=== PATIENT | male | born 1980 | race Caucasian/White ===

== ENCOUNTER 2017-08-05 14:32 | Inpatient (IN) | payer OTHER ==
[~2017-08-05] VITALS: Ht 188 cm; Wt 109.0 kg
[2017-08-05 16:07] LABS: Basophils # (auto) 0 uL; Basophils % (auto) 0.3 % (0.0-2.0); CONDITION Y; Eosinophils # (auto) 0.1 uL; Eosinophils % (auto) 0.8 % (0.0-7.0); Hematocrit 50.9 % (41.0-53.0); Hemoglobin 17.4 g/dL (13.5-17.5); Lymphocytes # (auto) 1.6 uL; Mean Corpuscular Hemoglobin 31.2 pg (28.0-32.0); Mean Corpuscular Hgb Conc. 34.1 g/dL (32.0-36.0); Mean Corpuscular Volume 91.4 fL (80.0-100.0); Mean Platelet Volume 9.9 fL (6.9-10.8); Monocytes # (auto) 0.9 uL; Monocytes % (auto) 6.4 % (0.0-12.0); Neutrophils % (auto) 81.5 % (37.0-80.0); Platelet Count (auto) 293 10^3/uL (140-450); Red Cell Distribution Width 14.4 % (11.8-14.3); White Blood Cell 14.7 10^3/uL (4.4-10.8)
[2017-08-05 16:12] LABS: Albumin 4.5 g/dL (3.4-5.0); BUN/Creatinine Ratio 16.7; Bilirubin, Total 1.1 mg/dL (0.2-1.0); Calcium 8.9 mg/dL (8.5-10.1); Potassium 3.5 mmol/L (3.5-5.1); Total Protein 7.9 g/dL (6.4-8.2)
[2017-08-05] MEDS ORDERED: SODIUM CHLORIDE 0.9% 1,000 ML IVB ONE ×2 (16:32→16:41)
[2017-08-05] MEDS ORDERED: ONDANSETRON HCL 4 MG/2 ML VIAL IV ONE (16:45)
[2017-08-05] MEDS ORDERED: MORPHINE SULF INJ 2 MG/ML SYRINGE 1ML IV PRN ×2 (16:45→20:30)
[2017-08-05 16:54] LABS: Magnesium 2.4 mg/dL (1.6-2.6)
[2017-08-05 17:03] LABS: INR 1.05 (0.9-1.15); Partial Thromboplastin Time 27.5 sec (22.64-33.71); Prothrombin Time 11.4 sec (9.37-12.3)
[2017-08-05] MEDS ORDERED: LIDOCAINE 1% HCL (LOCAL ANESTH.) INJ 20ML MDV ONE ×2 (17:18→18:24)
[2017-08-05] MEDS ORDERED: SUCCINYLCHOLINE CHLORIDE 20 MG/ML 10ML VIAL IV ONE (17:19)
[2017-08-05] MEDS ORDERED: MEPERIDINE HCL (50 MG/ML) 1 ML VIAL ONE (17:40)
[2017-08-05] MEDS ORDERED: MIDAZOLAM HCL 1MG/1ML-2 ML VIAL ONE (17:40)
[2017-08-05] MEDS ORDERED: KETOROLAC TROMETH 60MG/2ML VIAL IM ONE ×2 (17:40→19:43)
[2017-08-05] MEDS ORDERED: NEOSTIGMINE 1 MG/ML INJ (10mg/10ML VIAL) ONE ×2 (17:40→19:43)
[2017-08-05] MEDS ORDERED: fentaNYL CITRATE 100 MCG/2 ML VL ONE (17:40)
[2017-08-05] MEDS ORDERED: GLYCOPYRROLATE 0.2 MG/ML 1ML VIAL ONE ×2 (17:40→19:43)
[2017-08-05] MEDS ORDERED: ROCURONIUM 10MG/ML 10ML VIAL IV ONE (17:40)
[2017-08-05] MEDS ORDERED: ONDANSETRON HCL 4 MG/2 ML VIAL ONE (17:40)
[2017-08-05] MEDS ORDERED: PROPOFOL 10 MG/ML 20 ML IV ONE (17:40)
[2017-08-05] MEDS ORDERED: SODIUM CHLORIDE LOCK 20 ML ONE (17:40)
[2017-08-05] MEDS ORDERED: cefTRIAXone 1GM/50ML D5W 50 ML IV ONE (17:45)
[2017-08-05] MEDS ORDERED: POVIDONE IODINE 10 % TOPICAL OINT 30GM TOP ONE (19:55)
[2017-08-05] MEDS ORDERED: KETOROLAC TROMETH 30 MG/ML 1ML VIAL IV ONE (20:30)
[2017-08-05] MEDS ORDERED: NITROGLYCERIN 0.4 MG SL TAB SL PRN (20:30)
[2017-08-05] MEDS ORDERED: HYDROmorphone HCL 2 MG/ML VL IV PRN (20:30)
[2017-08-05] MEDS ORDERED: METOCLOPRAMIDE HCL 5MG/ml INJ 2ml VIAL IV ONE (20:30)
[2017-08-05 21:40] VITALS: BP 131/82
[2017-08-05] MEDS: metroNIDAZOLE 500MG/100ML 100 ML IV SCH (22:36)
[2017-08-05] MEDS: D5W/SOD CHL 0.45%/KCL 20MEQ 1,000 ML IV SCH (23:10)
[2017-08-06] VITALS (7 sets, daily range): BP systolic 109–137; BP diastolic 65–77
[2017-08-06] MEDS: HYDROmorphone HCL 2 MG/ML VL IV PRN ×6 (00:31→21:05)
[2017-08-06] MEDS: metroNIDAZOLE 500MG/100ML 100 ML IV SCH ×3 (05:34→21:27)
[2017-08-06] MEDS: D5W/SOD CHL 0.45%/KCL 20MEQ 1,000 ML IV SCH ×3 (08:00→22:25)
[2017-08-06] MEDS: ONDANSETRON HCL 4 MG/2 ML VIAL IV PRN ×2 (09:40→17:11)
[2017-08-06] MEDS: KETOROLAC TROMETH 30 MG/ML 1ML VIAL IV PRN (12:22)
[2017-08-06] MEDS: cefTRIAXone 1GM/50ML D5W 50 ML IV SCH (22:25)
[2017-08-07] MEDS: HYDROmorphone HCL 2 MG/ML VL IV PRN (02:23)
[2017-08-07 05:00] VITALS: BP 106/62
[2017-08-07] MEDS: D5W/SOD CHL 0.45%/KCL 20MEQ 1,000 ML IV SCH ×3 (05:39→22:01)
[2017-08-07 05:48] LABS: Basophils # (auto) 0 uL; Basophils % (auto) 0.2 % (0.0-2.0); Eosinophils # (auto) 0.1 uL; Eosinophils % (auto) 0.7 % (0.0-7.0); Hemoglobin 14.8 g/dL (13.5-17.5); Lymphocytes # (auto) 2.4 uL; Lymphocytes % (auto) 21.8 % (10.0-50.0); Mean Corpuscular Hemoglobin 31.2 pg (28.0-32.0); Mean Corpuscular Hgb Conc. 33.6 g/dL (32.0-36.0); Mean Corpuscular Volume 92.9 fL (80.0-100.0); Mean Platelet Volume 9.7 fL (6.9-10.8); Monocytes # (auto) 0.9 uL; Monocytes % (auto) 7.9 % (0.0-12.0); Neutrophils # (auto) 7.6 uL; Neutrophils % (auto) 69.4 % (37.0-80.0); Platelet Count (auto) 226 10^3/uL (140-450); Red Cell Distribution Width 14.1 % (11.8-14.3)
[2017-08-07] MEDS: metroNIDAZOLE 500MG/100ML 100 ML IV SCH ×3 (06:08→22:01)
[2017-08-07 06:16] LABS: Potassium 3.5 mmol/L (3.5-5.1)
[2017-08-07 06:23] LABS: BUN/Creatinine Ratio 18.4; Calcium 7.9 mg/dL (8.5-10.1)
[2017-08-07 09:00] VITALS: BP 116/65
[2017-08-07] MEDS ORDERED: HYDROmorphone HCL 2 MG/ML VL IV PRN (10:30)
[2017-08-07 13:00] VITALS: BP 119/64
[2017-08-07 17:00] VITALS: BP 124/44
[2017-08-07] MEDS: KETOROLAC TROMETH 30 MG/ML 1ML VIAL IV PRN (22:46)
[2017-08-07] MEDS: cefTRIAXone 1GM/50ML D5W 50 ML IV SCH (22:46)
[2017-08-08 00:21] VITALS: BP 124/69
[2017-08-08 05:41] VITALS: BP 123/75
[2017-08-08] MEDS: metroNIDAZOLE 500MG/100ML 100 ML IV SCH ×2 (05:58→14:00)
[2017-08-08] MEDS: D5W/SOD CHL 0.45%/KCL 20MEQ 1,000 ML IV SCH (05:59)
[2017-08-08 06:14] LABS: Basophils # (auto) 0 uL; Basophils % (auto) 0.5 % (0.0-2.0); Eosinophils # (auto) 0.2 uL; Eosinophils % (auto) 1.9 % (0.0-7.0); Hematocrit 45.7 % (41.0-53.0); Hemoglobin 15.2 g/dL (13.5-17.5); Lymphocytes # (auto) 2.6 uL; Lymphocytes % (auto) 30.5 % (10.0-50.0); Mean Corpuscular Hemoglobin 31.2 pg (28.0-32.0); Mean Corpuscular Hgb Conc. 33.3 g/dL (32.0-36.0); Mean Corpuscular Volume 93.7 fL (80.0-100.0); Mean Platelet Volume 9.7 fL (6.9-10.8); Monocytes # (auto) 0.8 uL; Monocytes % (auto) 9.7 % (0.0-12.0); Neutrophils % (auto) 57.4 % (37.0-80.0); Nucleated Red Blood Cells % 0.1 %; Platelet Count (auto) 226 10^3/uL (140-450); Red Cell Distribution Width 14.1 % (11.8-14.3); White Blood Cell 8.7 10^3/uL (4.4-10.8)
[2017-08-08 06:40] LABS: Calcium 8.6 mg/dL (8.5-10.1); Potassium 3.6 mmol/L (3.5-5.1)
[2017-08-08 06:43] LABS: BUN/Creatinine Ratio 11.4
[2017-08-08 08:53] VITALS: BP 114/59
[2017-08-08 13:00] VITALS: BP 132/66
[2017-08-08 14:22] VITALS: BP 132/66
== END 2017-08-08 15:40 | disposition home or self-care (01) | DRG 354 ==
LOC: ER 14:44 → OR 1 19:06 → OVERFLOW 19:07 → EAST 22:00
PROVIDERS: ADMIT Surgery; ATTEND Internal Medicine Pulmonary Disease
PROC: 0WQF0ZZ Repair Abdominal Wall, Open Approach (ICD-10-PCS; principal; 2017-08-05 19:13)
DX: K42.0 Umbilical hernia with obstruction, without gangrene (principal); K56.60 Unspecified intestinal obstruction; E66.9 Obesity, unspecified; Z68.30 Body mass index [BMI] 30.0-30.9, adult
CPT/HCPCS: 36415; 71010; 74176; 80048; 80053; 80320; 82150; 83690; 83735; 85025; 85610; 85730; 88302; 93005; 96374; 96375; 99291; J0330; J0696; J1885; J2001; J2250; J2405; J2704; J3490